=== PATIENT | female | born 1930 | race Caucasian/White ===

== ENCOUNTER 2016-09-12 08:46 | Emergency (ER) | payer MEDICARE, OTHER ==
[~2016-09-12 08:46] MED LIST: ACET-2605 PO; ASPI-973 PO; ATEN25TA PO; AZIT250T4 PO; CHOL10008 PO; FURO40TA4 PO; GLIP10TA3 PO; HYOS0.1217 PO; LEVO137T18 PO; LOPE2TAB32 PO; METF1000 PO; SIMV20TA4 PO; VENL75TA3 PO; VIT B12 IM
[2016-09-12 09:00] VITALS: BP 174/76; PULSE 78; RESP 18; O2SAT 97
--- NOTE | 2016-09-12 09:48 | ED.REPORT ---
HPI-General Illness Date of Service Sep 12, 2016 ED Provider: Issa Del Angel MD Pt is an 86 year old female with a hx of HTN, hyperlipidemia, DM and kidney disease presenting to the ED complaining of diffuse aching bones and not feeling like herself. Last night she reports that she had extreme difficulty with routine tasks, pain and swelling in extremities which increases throughout the day, flushing, dyspnea on exertion while going up stairs. Pt repeatedly states that she wants to feel like herself, and that she wants to be able to do the things that she likes to do. Pt is 1 year post chemo and 15 months post laminectomy. The pt's PCP tapered down her Effexor medication 5 weeks ago, then 3 weeks ago she stopped taking it altogether. The pt's son is currently trying to move his mother to an assisted living facility with no stairs but the pt is so far unwilling. Nursing Notes Stated Complaint: ACHY BONES Chief Complaint: General Complaint Nursing Notes Reviewed: Yes ([employer], Agrivida not reconciled) Allergies: Coded Allergies: atorvastatin (Verified Allergy, Unknown, liver toxicity, 02/09/16) codeine (Verified Allergy, Unknown, 02/09/16) iodine (Verified Allergy, Unknown, 02/09/16) meperidine (Verified Allergy, Unknown, 02/09/16) Scheduled ([Vit B12]) 1,000 MCG IM MONTHLY Acetaminophen/Diphenhydramine (Tylenol Pm Ex-Strength Caplet) 500 Mg-25 Mg Tablet 2 EACH PO BID Aspirin (Aspirin) 81 Mg Tablet 81 MG PO DAILY Atenolol (Atenolol) 25 Mg Tablet 12.5 MG PO HS Azithromycin (Zithromax (Z-Kelby)) 250 Mg Tablet 250 MG PO DIRECTED Take two tablets by mouth on day 1, then take one tablet daily on days 2 through 5. Cholecalciferol (Vitamin D3) (Vitamin D3) 1,000 Unit Tab.chew 2,000 UNIT PO DAILY Furosemide (Furosemide) 40 Mg Tablet 40 MG PO DAILY Glipizide ER (Glucotrol XL) 10 Mg Tablet 20 MG PO DAILY Hyoscyamine ODT (Hyoscyamine ODT) 0.125 Mg Tab.rapdis 0.125 MG PO PRN Levothyroxine (Levoxyl) 137 Mcg Tablet 68.5 MCG PO DAILY Metformin (Glucophage) 1,000 Mg Tablet 1,000 MG PO BID Simvastatin (Simvastatin) 20 Mg Tablet 20 MG PO HS Venlafaxine (Venlafaxine) 75 Mg Tablet 75 MG PO DAILY Venlafaxine ER (Effexor XR) 75 Mg Capsule 75 MG PO DAILY Scheduled PRN Loperamide (Loperamide) 2 Mg Tablet 4 MG PO Q4H PRN PRN For Diarrhea or Loose Stool After first loose stool, then 1 tablet after each loose stool up to maximum of 8 tablets in 24 hours General Time Seen by MD: 09:39 Chief Complaint Other (Aching bones) Hx Obtained From: Patient Arrived By: Walk-in Sudden in Onset?: No Onset Occurred: Onset unknown Symptom Duration: Since onset Location: : Arm left: Arm right: Foot left: Foot right: Hip right: Wrist left: Wrist right Quality: Painful Severity: Current: Moderate Severity: Maximum: Moderate Recent Healthcare: No recent doctor visit, No recent hospitalization Similar Sx Previous: Yes Past Medical History Past Medical History Notes: Oncologist: Dr. Colón Past Medical History h/o of Breast cancer Non-Hodgkin's lymphoma Vitamin B12 defiency Hypertension Depression Diabetes mellitus type II Hyperlipidemia Chronic kidney disease, stage III Hypothyroidism Past Surgical History Cataract extraction Cholecystectomy Hysterectomy Termpanoplasty Left nephrectomy Thyroidectomy Family History Noncontributory Smoking History Never Smoker Social History Drug Use: Denies drug use Other Social History: Good social support, , Local resident Ambulatory Status Walker Review of Systems Full Review of Systems Respiratory: Reports: Dyspnea on exertion Musculoskeletal: Reports: Extremity pain, Extremity swelling, Joint pain, Joint swelling Complete sys rev & neg: except as marked. Physical Exam Vital Signs Vital Signs Date Time Temp Pulse Resp B/P Pulse Ox O2 Delivery O2 Flow Rate FiO2 09/12/16 14:36 37 78 18 174/76 97 Room Air 09/12/16 09:00 37 78 18 174/76 97 Room Air Initial VS: Reviewed, Vital signs normal (except for HTN) Head / Eyes: Atraumatic, Normocephalic, PERRL ENT: Mucous membranes moist, Conjunctiva normal, No scleral icterus Respiratory: Breath sounds normal, Clear to auscultation, No respiratory distress Cardiovascular: Regular rate & rhythm, Heart sounds normal, Intact distal pulses Abdomen / GI: Soft, Non-tender, No guarding, No rebound, No distention Extremities: Vascular intact, Neuro intact, No swelling, No tenderness Skin: Warm, Dry, No cyanosis Neurologic: Alert, Oriented, Nonfocal Psychiatric: Mood/affect normal, Behavior normal, Normal thought content General/Constitutional: Awake, Alert, No acute distress, Well appearing Lower Extremity / Pelvis / MS: Neurologic intact, Vascular intact, No edema Interpretation & Diagnostics Lab Results Interpretation Result Diagram: 09/12/16 1115 09/12/16 1115 Test 09/12/16 11:00 09/12/16 11:15 Erythrocyte Sedimentation Rate 62mm/hr (0-40) White Blood Count 8.1th/mm3 (3.8-10.1) Red Blood Count 3.76mil/mm3 (3.90-5.20) Hemoglobin 10.5g/dL (12.0-15.6) Hematocrit 33.1% (35.0-46.0) Mean Corpuscular Volume 88.0fL (81-100) Mean Corpuscular Hemoglobin 27.9pg (27.0-35.0) Mean Corpuscular Hemoglobin Concent 31.7% (32.0-37.0) Red Cell Distribution Width 13.5% (12.3-15.4) Platelet Count 207bil/L (150-400) Neutrophils (%) (Auto) 62.6% (40-74) Lymphocytes (%) (Auto) 30.7% (14-46) Monocytes (%) (Auto) 4.8% (4-12) Eosinophils (%) (Auto) 1.2% (0-5) Basophils (%) (Auto) 0.5% (0-3) Sodium Level 143mEq/L (134-144) Potassium Level 4.0mEq/L (3.5-5.2) Chloride Level 104mEq/L (97-108) Carbon Dioxide Level 24mmol/L (18-29) Blood Urea Nitrogen 16mg/dL (8-27) Creatinine 1.07mg/dL (0.57-1.00) Estimat Glomerular Filtration Rate 70mL/min (>59) Glucose Level 200mg/dL (60-99) Lactic Acid Level 1.1mmol/L (0.4-2.0) Calcium Level 9.7mg/dL (8.5-10.1) Total Bilirubin 0.7mg/dL (0.0-1.2) Aspartate Amino Transf (AST/SGOT) 17U/L (0-50) Alanine Aminotransferase (ALT/SGPT) 13U/L (0-32) Alkaline Phosphatase 83U/L (25-165) Total Creatine Kinase 86U/L (21-215) Total Protein 7.2g/dL (6.4-8.4) Albumin 4.2g/dL (3.4-5.0) Lab Results Interpretation: CBC normal and CMP mild hyperglycemia UA negative ESR marginally elevated X-Ray Chest Interpretation Chest Xray Interpretation: IMPRESSION: 1. No acute cardiopulmonary process is suspected. 2. Right upper lobe lesion probably is unchanged. Dictated by: Ady Hernandez M.D. on 09/12/2016 at 9:25 View: Portable, 1 view Interpretation / Wet Read by: Interpret - Radiologist Re-Eval/Medical Decision Med Decision/Clinical Course This is a pleasant 86-year-old female who lives independently that about 3 weeks ago she met her new PCP on review of her medications recommended that they try and wean her off some of her medications as been on them for a long time and is a thought she may not need to be on these same medications. Therefore the plan was to wean her off her Effexor and she completed a taper. However over this past week she feels that she is developed increased depression and periods of tearfulness, that she also feels tired and achy, and that she seized does not have the same energy or even ability to pursue her usual activities. She is having a hard time gardening, she is getting some aches in her hands-but no swelling, tender, more in the evening, but she just "does not feel right". She denies fevers, cough, dysuria. Her son accompanies here and reports that he was trying to get her into assisted living, but she is resistant to this concept. Here in the department I cannot get her to really articulate more than she does not feel right, she is a little more depressed, and she does correlate these symptoms to the discontinuation of her Effexor. She has normal vitals, she is clinically well-appearing mildly anxious. She is fairly talkative. Lungs are clear abdomen soft nontender, no joint effusions, edema or swelling of the hands or legs or other joints. She does not currently have blanca arthralgias. She has no focal deficits. I reviewed this point is reasonable for him screening laboratories, but the patient makes a strong argument that her symptoms may be secondary to withdrawal the the Effexor. Chest x-ray, urine and blood work were normal with mild hyperglycemia, and a marginally elevated sedimentation rate of uncertain significance. I am still not finding evidence of a underlying infection, anemia , or acute medical process. She describes depression, anxiety, and a clear affect to her daily life, I think it is reasonable in this setting to resume her Effexor back 75 mg daily dose, and then have her follow up for recheck with her primary care physician. She is agreeable to this. She is discharged in good condition. I have written a prescription for 30 day supply to make sure she has medication-but she thinks she does still have plenty, she gave them her son so that she would not take them when she was told to discontinue them. (But I do not have a way to count the number She actually has with her, so the prescription was written as an insurance) Source of Hx: Old records Time of Eval: 14:00 Patient Status: Condition improved Re-Evaluation/Progress Note: Discussed plan for discharge. Pt understands and agrees. Differential Diagnosis: Positive: Diabetes mellitus, Negative: Abdominal pain, Acute coronary syndrome, Allergies, Cellulitis, Drug dependence, Laceration, Malingering, Neutropenia, Pneumonia, Urinary tract infection Counseled Regarding: Diagnosis, Lab results, Need for follow-up, When/why to return to ED Discharge & Departure Primary Impression: Adverse drug reaction Encounter type: initial encounter Qualified Code: T88.7XXA - Unspecified adverse effect of drug or medicament, initial encounter Disposition: Home Discharge Condition All VS Reviewed: Yes Condition: Improved Additional Instructions: 1. Your urine and blood tests were generally normal. 2. I am suspicious that the majority of her symptoms are from the withdrawal of the Effexor. 3. I think at this point it is reasonable to resume the Effexor 75 mg once a day. 4. Please note you can take extra strength Tylenol 500mg 2 tabs up to 3 times a day as needed for pain. 5. Schedule follow-up appointment with Dr. Pro for recheck in 1-2 weeks. Referrals: Noam Pro MD (PCP) Scribe Attestation Portions of this note were transcribed by Nahed Berg. I, Dr. Del Angel personally performed the history, physical exam and medical decision-making; I reviewed and confirmed the accuracy of the information in the transcribed note. Signed by: Paco Resendez, 09/12/2016 at 1430. copies to: Noam Pro MD, Matthew F MD Sep 12, 2016 09:48 NAHED BERG Sep 12, 2016 10:44
--- NOTE | 2016-09-12 10:29 | DRSVH ---
PROCEDURE: X-RAY CHEST ONE VIEW, PORTABLE ([id number]) INDICATIONS: weakness ?fever TECHNIQUE: One view of the chest was acquired. COMPARISON: [facility], CT, CT CHEST WO CON, 06/01/2016, 11:04. [facility], CR, XR CHEST 1VW (PORTABLE), 02/09/2016, 12:32. [facility], CR, XR CHEST 1VW, 06/11/2015, 15:06. FINDINGS: Surgical changes and devices: Postoperative changes overlying the base of the neck and left lung base are noted. Lungs and pleura: The aeration of the lungs is similar to the chest CT. There may be minimal residua l airspace disease within the right lung apex. No new consolidation, effusion, or pneumothorax is ev ident. Mediastinum: Mediastinal contours appear normal. Heart size is normal. Bones and chest wall: No suspicious bony lesions. Overlying soft tissues appear unremarkable. IMPRESSION: 1. No acute cardiopulmonary process is suspected. 2. Right upper lobe lesion probably is unchanged. Dictated by: Ady Hernandez M.D. on 09/12/2016 at 9:25 Approved by: Ady Hernandez M.D. on 09/12/2016 at 9:27
[2016-09-12 11:28] LABS: BASOPHILS % (AUTO) 0.5 % (0-3); EOSINOPHILS % (AUTO) 1.2 % (0-5); MONOCYTES % (AUTO) 4.8 % (4-12); Mean Corpuscular Hemoglobin 27.9 pg (27.0-35.0); NEUTROPHILS % (AUTO) 62.6 % (40-74); Platelet Count 207 bil/L (150-400)
[2016-09-12] MEDS ORDERED: VENL75CA PO (14:05)
[2016-09-12 14:36] VITALS: BP 174/76; PULSE 78; RESP 18; O2SAT 97
== END 2016-09-12 14:35 | disposition home or self-care (01) ==
LOC: SED 08:46
DX: T43.215A Adverse effect of selective serotonin and norepinephrine reuptake inhibitors, initial encounter (principal); X58.XXXA Exposure to other specified factors, initial encounter; Y93.9 Activity, unspecified; Y92.9 Unspecified place or not applicable; Y99.9 Unspecified external cause status; I13.10 Hypertensive heart and chronic kidney disease without heart failure, with stage 1 through stage 4 chronic kidney disease, or unspecified chronic kidney disease; N18.3 Chronic kidney disease, stage 3 (moderate); E11.22 Type 2 diabetes mellitus with diabetic chronic kidney disease; E78.5 Hyperlipidemia, unspecified; Z85.3 Personal history of malignant neoplasm of breast; Z79.82 Long term (current) use of aspirin; Z79.84 Long term (current) use of oral hypoglycemic drugs; Z79.899 Other long term (current) drug therapy; Z88.5 Allergy status to narcotic agent; Z88.8 Allergy status to other drugs, medicaments and biological substances